=== PATIENT | male | born 1970 | race Caucasian/White ===

== ENCOUNTER 2017-05-29 07:43 | Emergency (ER) | payer SELFPAY ==
[2017-05-29] MEDS ORDERED: ONDANSETRON HCL/PF 4 MG/ 2ML VIAL IVP ONE (08:02)
[2017-05-29] MEDS ORDERED: 0.9 % SODIUM CHLORIDE 1,000 ML IV ONE (08:02)
[2017-05-29 08:07] LABS: BASOPHILS % 0.6 (0.0-1.5); MEAN CORPUSCULAR HEMOGLOBIN 30.5 pg (28.0-34.0); MEAN CORPUSCULAR VOLUME 90.2 fl (80.0-100.0); MONOCYTES % 4.4 % (0.0-11.0); NEUTROPHILS # 4.6 # k/uL (1.4-7.7)
[2017-05-29 08:28] LABS: eGFR (African) > 60; eGFR (Non-African) > 60
--- NOTE | 2017-05-29 08:41 | ED Physician Documentation ---
General Adult - HISTORIAN Historian: patient - HPI Stated Complaint: hyperglycemia, nausea Chief Complaint: General Adult Further Comments: yes (46 year old male patient presents with complaints of "high blood sugar" and not feeling well. Patient reports Dr Flores took him off his insulin 18 months ago. Patient states he took an extra metformin to "get my blood sugar down", c/o nausea and upset stomach.) - ROS CONST: no problems EYES/ENT: none CVS/RESP: none GI/: none MS/SKIN/LYMPH: none NEURO/PSYCH: denies: headache, fainting, dizziness, tingling, numbness, difficulty walking, difficulty with speech, anxiety, depression, other - PAST HX Past History: none Other History: diabetes Type 2 Allergies/Adverse Reactions: Allergies Allergy/AdvReac Type Severity Reaction Status Date / Time No Known Allergies Allergy Verified 05/29/17 08:07 - SOCIAL HX Smoking History: non-smoker - FAMILY HX Family History: No - VITAL SIGNS Vital Signs: Vital Signs Temp Pulse Resp BP Pulse Ox 98.2 F 94 H 20 147/96 95 05/29/17 07:50 05/29/17 07:50 05/29/17 07:50 05/29/17 07:50 05/29/17 07:50 - REVIEWED ASSESSMENTS Nursing Assessment Reviewed: Yes Vitals Reviewed: Yes Progress - Progress Progress: Reviewed old records, last Hemoglobin A1C 10.8 in Aug 2016, no record of insulin being dc'd noted. Spoke with Dr Flores - did not stop insulin. Reviewed lab with patient, extensive diabetes education, risk and benefit of glucose control discussed including blindness, neuropathy, renal failure, and heat attack; instructed patient to make appointment this week with Dr Flores to restart insulin. Instructed patient to keep at least q3-6 month diabetes appointments with primary care. ED Results Lab/Radiology - Lab Results Lab Results: Lab Results 05/29/17 07:49 WBC 7.10 K/ul K/ul (4.00-12.00) RBC 5.19 M/ul M/ul (3.90-5.20) Hgb 15.8 g/dL g/dL (12.0-18.0) Hct 46.8 % % (37.0-53.0) MCV 90.2 fl fl (80.0-100.0) MCH 30.5 pg pg (28.0-34.0) MCHC 33.8 g/dL g/dL (30.0-36.0) RDW 12.7 % % (11.3-14.3) Plt Count 247 K/mm3 K/mm3 (130-400) Neut % (Auto) 64.8 % % (39.0-79.0) Lymph % (Auto) 26.1 % % (16.0-50.0) [place] % (Auto) 4.4 % % (0.0-11.0) Eos % (Auto) 2.0 % % (0.0-6.8) Baso % (Auto) 0.6 (0.0-1.5) Neut # (Auto) 4.6 # k/uL # k/uL (1.4-7.7) Lymph # (Auto) 1.8 # k/uL # k/uL (0.6-4.0) [place] # (Auto) 0.3 # k/uL # k/uL (0.0-0.9) Eos # (Auto) 0.1 # k/uL # k/uL (0.0-0.6) Baso # (Auto) 0.0 # k/uL # k/uL (0.0-0.5) Reactive Lymphs % 2.2 % % (0.0-5.0) Reactive Lymphs # 0.2 # k/uL # k/uL (0.0-0.8) - Orders Orders: ED Orders Category Date Time Status CBC/PLATELET/DIFF Stat Lab 05/29/17 07:49 Completed CMP Stat Lab 05/29/17 07:49 Received UA W/MICRO IF INDICATED Stat Lab 05/29/17 07:49 Ordered 0.9 % Sodium Chloride [Normal Saline] 1,000 ml Med 05/29/17 08:02 Discontinued IV NOW Ondansetron HCl/Pf [Zofran 4 mg/2 ml] Med 05/29/17 08:02 Discontinued 4 mg IVP NOW ONE General Adult Physical Exam - PHYSICAL EXAM GENERAL APPEARANCE: [id number] N EENT: eye inspection normal, NATY RESPIRATORY: no resp distress, chest non-tender, breath sounds normal CVS: reg rate & rhythm, heart sounds normal, equal pulses, no murmur, no gallop , PMI nml, no JVD, no friction rub, 24 ABDOMEN: soft, no organomegaly, normal bowel sounds, no abdominal bruit, no distension, other (morbid obesity) BACK: normal inspection, no CVA tenderness SKIN: normal color, warm/dry, NR, INT, PAL, DR EXTREMITIES: non-tender, normal range of motion, no evidence of injury, no edema , J, CLAIM T[employer]ER NEURO: oriented X3, CN's nml as tested, motor nml, sensation nml, mood/affect nml Discharge Clincal Impression: Non compliance w medication regimen Hyperglycemia due to type 2 diabetes mellitus Qualifiers: Diabetes mellitus dispatcher service insulin use: without dispatcher service use Qualified Code(s ): E11.65 - Type 2 diabetes mellitus with hyperglycemia Referrals: Antoinette Flores MD [Primary Care Provider] - 2 Days Condition: Stable Disposition: 01 HOME, SELF-CARE Decision to Admit: NO Decision Time: 10:00
[2017-05-29] MEDS ORDERED: INSULIN REGULAR, HUMAN 100 UNIT/ML 3ML VIAL ONE (09:36)
[2017-05-29 09:39] LABS: ABG BASE EXCESS 0.2 (-2 - +2); ABG PH 7.36 (7.35-7.45)
[2017-05-29] MEDS ORDERED: INSULIN REGULAR, HUMAN 100 UNIT/ML 3ML VIAL SQ ONE (09:40)
[2017-05-29 10:20] VITALS: BP 133/80
[2017-05-30 05:59] LABS: APPEARANCE,URINE CLEAR (CLEAR); COLOR,URINE YELLOW (YELLOW); OCCULT BLOOD,URINE NEGATIVE (NEGATIVE); UROBILINOGEN URINE 0.2 Eu (0.2-1.0)
== END 2017-05-29 10:19 | disposition home or self-care (01) ==
LOC: ED 07:43
DX: E11.65 Type 2 diabetes mellitus with hyperglycemia (principal)
CPT/HCPCS: 36600; 80053; 80061; 82803; 83036; 85025; J1815; J2405; J7030; 81002; 96361; 96372; 96374; 99283; S1016

== ENCOUNTER 2018-01-04 20:51 | Emergency (ER) | payer SELFPAY ==
[2018-01-04] MEDS ORDERED: Lidocaine 1% 5ml(IM or SUTURE)(PAIN CLINIC) IJ ONE (21:10)
[2018-01-04] MEDS ORDERED: SODIUM BICARBONATE 2.4 MEQ VIAL INJ ONE (21:10)
--- NOTE | 2018-01-04 21:32 | ED Physician Documentation ---
Abscess - HISTORIAN Historian: patient - HPI Chief Complaint: Abscess Onset: days ago Timing: worse Location: other (back) Further Comments: yes (47 year old male patient presents with abscess on back, was started on bactrim DS yesterday. C/O severe pain, unable to sleep last night. 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, MRSA) - ROS CONST: none CVS/RESP: none EYES/ENT: none GI/: none MS/SKIN/LYMPH: none NEURO/PSYCH: none - PAST HX Past History: diabetes Type 2, hypertension, other (previous MRSA abscess) Immunizations: UTD Allergies/Adverse Reactions: Allergies Allergy/AdvReac Type Severity Reaction Status Date / Time No Known Allergies Allergy Verified 05/29/17 08:07 - SOCIAL HX Smoking History: non-smoker - FAMILY HX Family History: denies: none - VITAL SIGNS Vital Signs: Vital Signs Temp Pulse Resp BP Pulse Ox 133/80 05/29/17 10:19 - REVIEWED ASSESSMENTS Nursing Assessment Reviewed: Yes Vitals Reviewed: Yes Procedures Site: upper back; between scapula Blade Size: 11 I & D Procedure: Chlorhexidine Progress: Wound cleaned with chlorhexidine 1% lidocaine with neut - 5cc injected in wheel. 1 cm incision with #11 blade; large amount of purulent drainage. Abscess tunnels down 2.5 cm Pack with 1/4" meflix; covered with 4x4 Patient instructed to removed packing tomorrow. Progress - Progress Progress: Patient started 10 day course of bactrim yesterday ED Results Lab/Radiology - Orders Orders: ED Orders Category Date Time Status WOUND CULTURE Stat Lab 01/04/18 21:10 Ordered Lidocaine 1% 5ml(IM or SUTURE) [Xylocaine] Med 01/04/18 21:10 Discontinued 50 mg IJ NOW ONE Sodium Bicarbonate [Neut] Med 01/04/18 21:10 Discontinued 2.4 meq INJ NOW ONE Abscess Physical Exam - EXAM General Appearance: mild distress Skin: warm,dry, abscess (upper back, soft tissue to left of T2-3; 5 cm area of erythema, raised center. ) Location: back Character: erythematous Symptoms: warmth, tenderness, swelling EENT: eyes nml inspection Respiratory: no resp distress, chest non-tender, breath sounds normal CVS: reg. rate & rhythm Neuro/Psych: oriented x3, motor nml, sensation nml, mood/affect nml Discharge Clincal Impression: Abscess of upper back excluding scapular region Additional Instructions: Remove the packing tomorrow. Continue your bactrim as prescribed Clean the wound twice a day with hibiclens and rinse with water clean away any scabbed area Cover with non-adherent bandage if able. If you have pain, take simple pain relief medication such as Tylenol or ibuprofen. If bandages or dressings get wet, they will need to be changed. See your PCP on Monday for a wound check. Condition: Stable Disposition: 01 HOME, SELF-CARE Decision to Admit: NO Decision Time: 21:33
[2018-01-04 22:07] VITALS: BP 152/94
== END 2018-01-04 21:40 | disposition home or self-care (01) ==
LOC: ED 20:51
DX: L02.212 Cutaneous abscess of back [any part, except buttock and flank] (principal); E11.9 Type 2 diabetes mellitus without complications; I10 Essential (primary) hypertension
CPT/HCPCS: 10060; 87070; 87186; 99282

== ENCOUNTER 2019-07-10 10:48 | Outpatient (CLI) | payer SELFPAY ==
[2019-07-10 11:10] LABS: BASOPHILS % 0.6 % (0.0-1.5); NEUTROPHILS # 4.3 # k/uL (1.4-7.7)
[2019-07-10 11:49] LABS: eGFR (Non-African) > 60
[2019-07-10 11:50] LABS: A1C 12.7 % (<5.7); HDL 56 mg/dL (>40)
== END 2019-07-10 10:50 ==
LOC: LAB 10:48
PROVIDERS: ATTEND Nurse Practitioner Family
DX: E11.9 Type 2 diabetes mellitus without complications (principal)
CPT/HCPCS: 36415; 80053; 80061; 82043; 83036; 85025

== ENCOUNTER 2019-09-03 17:47 | Emergency (ER) | payer SELFPAY ==
[2019-09-03] MEDS ORDERED: HYDROmorphone HCL/PF 1 MG/ML VIAL IM ONE (18:25)
[2019-09-03] MEDS ORDERED: KETOROLAC TROMETHAMINE 60 MG/2 ML VIAL IM ONE (18:25)
--- NOTE | 2019-09-03 18:26 | ED Physician Documentation ---
Flank Pain - HISTORIAN Historian: patient - HPI Stated Complaint: right flank pain Chief Complaint: Flank Pain Additional Information: Patient presents to ED with a 24 hour history of worsening right flank pain. Patient states he has a history of frequent kidney stones and this is classic. He sees Dr. Flores and reports repeated CT scans always show small stones without obstruction. He also reports there is no blood in his urine anytime he has kidney stones. He admits to some nausea due to pain. Onset: hours (24) Duration: waxing, waning Context: denies: out of country travel, bad food Severity: moderate Quality: pain, aching, dull, sharp, stabbing Associated Symptoms: nausea. denies: fever, vomiting Exacerbated by: movements Relieved by: nothing - ROS CONST: no problems GI/: none CVS/RESP: none EYES/ENT: none MS/SKIN/LYMPH: none NEURO/PSYCH: none - SOCIAL HX Smoking History: non-smoker Alcohol Use: none Drug Use: none - FAMILY HX Family History: kidney stones - PAST HX Past History: none Other History: diabetes Type 2 Surgeries/Procedures: none Medications: none - VITAL SIGNS Vital Signs: Vital Signs Temp Pulse Resp BP Pulse Ox 152/94 01/04/18 21:00 - REVIEWED ASSESSMENTS Nursing Assessment Reviewed: Yes Vitals Reviewed: Yes ED Results Lab/Radiology - Orders Orders: ED Orders Category Date Time Status HYDROmorphone HCL/PF [Dilaudid] Med 09/03/19 18:25 Once 1 mg IM NOW ONE Ketorolac Tromethamine [Toradol] Med 09/03/19 18:25 Once 60 mg IM NOW ONE Abdominal Pain Physical Exam - Physical Exam General Appearance: no acute distress, alert EENT: NATY NECK: normal inspection, supple RESPIRATORY: no resp distress, breath sounds normal CVS: reg rate & rhythm, heart sounds normal ABDOMEN: soft, normal bowel sounds BACK: CVA tenderness (R) SKIN: warm/dry EXTREMITIES: non-tender, no edema NEURO: oriented X3, sensation nml, mood/affect nml Vital Signs: Vital Signs Temp Pulse Resp BP Pulse Ox 152/94 01/04/18 21:00 Discharge Clincal Impression: Ureter colic Prescriptions: Ondansetron HCl Rapdis [Zofran Odt] 4 mg PO Q8 PRN #30 tab PRN Reason: Nausea / Vomiting Referrals: Antoinette Flores MD [Primary Care Provider] - 2 Days Additional Instructions: 1. [place] every 6 hours as needed for pain 2. Zofran every 8 hours as needed for nausea 3. Drink plenty of fluids. Avoid soda, caffeine, energy drinks and alcohol 4. Follow up with Dr. Flores within 3 days 5. Return to ER for new or worsening symptoms Condition: Stable Disposition: 01 HOME, SELF-CARE Decision to Admit: NO Date of Decison to Admit: 09/03/19 Decision Time: 18:31
[2019-09-03 18:42] VITALS: BP 129/98
[2019-09-04 07:42] LABS: APPEARANCE,URINE CLEAR (CLEAR); COLOR,URINE YELLOW (YELLOW)
[2019-09-04 07:43] LABS: OCCULT BLOOD,URINE NEGATIVE (NEGATIVE); PH URINE 6.5 (5.0 - 8.0); UROBILINOGEN URINE 0.2 Eu (0.2-1.0)
== END 2019-09-03 18:36 | disposition home or self-care (01) ==
LOC: ED 17:47
DX: N23 Unspecified renal colic (principal)
CPT/HCPCS: 81002; 96372; 99284; J1170; J1885